=== PATIENT | male | born 1950 | race Caucasian/White ===

== ENCOUNTER 2017-03-21 17:48 | Emergency (ER) | payer SELFPAY ==
[~2017-03-21] VITALS: Ht 175.3 cm; Wt 63.5 kg
[2017-03-21 17:58] VITALS: BP 123/82
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
[2017-03-21 18:58] VITALS: BP 123/82
== END 2017-03-21 19:00 | disposition home or self-care (01) ==
LOC: EDBD 17:48 → EMR 18:38
DX: F10.129 Alcohol abuse with intoxication, unspecified (principal)
CPT/HCPCS: 80307; 99284